=== PATIENT | male | born 1960 | race Caucasian/White ===

== ENCOUNTER 2018-10-12 12:41 | Emergency (ER) | payer OTHER ==
[~2018-10-12] VITALS: Ht 195.6 cm; Wt 122.5 kg
[~2018-10-12 12:41] MED LIST: NORCO 7.5-3251 EACH PO; ULTRAM50 MG PO
--- NOTE | 2018-10-13 07:15 | EKG ---
[facility] [address] [place], [place] [address] Signed Normal sinus rhythm Normal ECG No previous ECGs available Confirmed by VIC PADRON MD ([id number]) on 10/13/2018 7:15:13 AM Electronically Signed By: VIC PADRON MD 10/13/18 0715 PATIENT NAME: CANDY BROWN Electrocardiogram DATE OF : 60 PHYSICIAN: VIC PADRON MD REPORT #: [id number] REPORT IS CONFIDENTIAL AND NOT TO BE RELEASED WITHOUT AUTHORIZATION
== END 2018-10-12 14:32 | disposition home or self-care (01) ==
LOC: ED 12:41
DX: R07.89 Other chest pain (principal); Z79.899 Other long term (current) drug therapy
CPT/HCPCS: 71045; 80053; 84484; 85025; 85610; 93005; 93010; 99285-25

== ENCOUNTER 2019-07-17 22:03 | Emergency (ER) | payer OTHER ==
[~2019-07-17] VITALS: Ht 195.6 cm; Wt 106.6 kg
--- OUTSIDE RECORDS SUMMARY | ~2019-07-17 | XMS | Encounter Summary ---
Demographics + + + | Address | [address] | | | [place] [address] | + + + | Home Phone | | + + + | Preferred Language | Unknown | + + + | Marital Status | Single | + + + | Restorationist Affiliation | Unknown | + + + | Race | White | + + + | Ethnic Group | Not or | + + + Author + + + | Author | [facility] | + + + | Organization | [facility] | + + + | Address | Unknown | + + + | Phone | Unavailable | + + + Support + + +---------+ + | Name | Relationship | Address | Phone | + + +---------+ + | Nerissa East | ECON | Unknown | | + + +---------+ + Care Team Providers + +------+ + | Care Note Specialist Name | Role | Phone | + +------+ + | Hugo Falk MD | PCP | | + +------+ + Encounter Details +--------+ + + + + | Date | Type | Department | Care Team | Description | +--------+ + + + + | 04/16/ | Ancillary | [facility] Faculty | | | | 2005 | Registratio | Practice [address] | | | | | n | [facility] | | | | | | [place] [address] | | | | | | [phone] | | | +--------+ + + + + Social History + +-------+ +--------+------+ | Tobacco Use | Types | Packs/Day | Years | Date | | | | | Used | | + +-------+ +--------+------+ | Never Assessed | | | | | + +-------+ +--------+------+ + + + | Sex Assigned at | Date Recorded | | | | + + + | Not on file | | + + + + + + + | Job Start Date | Occupation | Industry | + + + + | Not on file | Not on file | Not on file | + + + + + + + + | Travel History | Travel Start | Travel End | + + + + + + | No recent travel history available. | + + documented as of this encounter Plan of Treatment Not on filedocumented as of this encounter Visit Diagnoses Not on filedocumented in this encounter"
--- OUTSIDE RECORDS SUMMARY | ~2019-07-17 | XMS | Encounter Summary ---
Demographics + + + | Address | [address] | | | [place] [address] | + + + | Home Phone | | + + + | Preferred Language | Unknown | + + + | Marital Status | Single | + + + | Faith Affiliation | Unknown | + + + [...] Team Providers + +------+ + | Care Manager Safe Name | Role | Phone | + +------+ + PCP | Unavailable | + +------+ + Encounter Details +--------+ + + + + | Date | Type | Department | Care Team | Description | +--------+ + + + + | 04/09/ | Results | | Other, Faculty | | | 2006 | Only | | [phone] | | +--------+ + + + + [...] | | | | | MNT) | [id number] OF | | | | | | SPECIMEN:B FIRST TISSUE | | | | | | [place] [address] | | | | | | CLINICAL [...] + + | [facility] | [address], [address] | [place] [address] | | | DERMATOPATHOLOGY | Tay Tyler | | | + + + + + documented in this encounter Visit Diagnoses Not on filedocumented in this encounter"
--- OUTSIDE RECORDS SUMMARY | ~2019-07-17 | XMS | Clinical Summary ---
Demographics + + + | Address | [address] | | | [place] [address] | + + + | Home Phone | | + + + | Preferred Language | Unknown | + + + | Marital Status | Single | + + + | Zoroastrian Affiliation | Unknown | + + + [...] Team Providers + +------+ + | Care Field Specialist Name | Role | Phone | + +------+ + | Hugo Falk MD | PCP | | + +------+ + Source Comments RAMIRO is fully live on both [facility] and [facility] Allergies Not on File Medications Not on [...] | PROVID | xxxxxxxxxxx | 09/02/19 | [phone] | [address] | PPO | | | ENCE | | [address] | [address] | [address] | | | | HEALTH | | sent | | [place], | | | | | | | | [place] [address] | | + +--------+ +--------+ + +------+ [...] | 1960 | [phone] | [place] [address] | | | [place] | | | 7 (Home) | | + +--------+ +--------+ + +"
--- OUTSIDE RECORDS SUMMARY | ~2019-07-17 | XMS | Encounter Summary ---
Demographics + + + | Address | [address] | | | [place] [address] | + + + | Home Phone | | + + + | Preferred Language | Unknown | + + + | Marital Status | Single | + + + | Adventism Affiliation | Unknown | + + + [...] Providers + +------+ + | Care Manager Of Community Relations Name | Role | Phone | + +------+ + PCP | Unavailable | + +------+ + Encounter Details +--------+ + + + + | Date | Type | Department | Care Team | Description | +--------+ + + + + | 04/09/ | Results | | Other, Faculty | | | 2006 | Only | | [phone] | | +--------+ + + + + [...] | | | | | MNT) | 34347COESLE OF | | | | | | SPECIMEN:B FIRST TISSUE | | | | | | [place] [address] | | | | | | CLINICAL [...] [facility] | [address], [address] | [place] [address] | | | DERMATOPATHOLOGY | Tay Tyler | | | + + + + + documented in this encounter Visit Diagnoses Not on filedocumented in this encounter"
--- OUTSIDE RECORDS SUMMARY | ~2019-07-17 | XMS | Encounter Summary ---
Demographics + + + | Address | [address] | | | [place] [address] | + + + | Home Phone [...] Author + + + | Author | [facility] | + + + | Organization | [facility] | + + + | Address | Unknown | + + + | Phone | Unavailable | + + + Support + + +---------+ + | Name | Relationship | Address | Phone | + + +---------+ + | Nerissa East | ECON | Unknown | | + + +---------+ + Care Team Providers + +------+ + | Care Magnetic Observer Name | Role | Phone | + +------+ + | Hugo Falk MD | PCP | | + +------+ + Encounter Details +--------+ + + + + | Date | Type | Department | Care Team | Description | +--------+ + + + + | 04/16/ | Ancillary | [facility] Faculty | | | | 2005 | Registratio | Practice [address] | | | | | n | [facility] | | | | | | [place] [address] | | | | | | [phone] | | | +--------+ + + + [...]
--- OUTSIDE RECORDS SUMMARY | ~2019-07-17 | XMS | Encounter Summary ---
Demographics + + + | Address | [address] | | | [place] [address] | + + + | Home Phone | | + + + | Preferred Language | Unknown | + + + | Marital Status | Single | + + + | Sabianist Affiliation | Unknown | + + + | Race | White | + + + | Ethnic Group | Not or | + + + Author + + + | Author | [facility] | + + + | Organization | [facility] | + + + | Address | Unknown | + + + | Phone | Unavailable | + + + Support + + +---------+ + | Name | Relationship | Address | Phone | + + +---------+ + | Nerissa East | ECON | Unknown | | + + +---------+ + Care Team Providers + +------+ + | Care Lead Java Programmer Name | Role | Phone | + +------+ + | Hugo Falk MD | PCP | | + +------+ + Encounter Details +--------+ + + + + | Date | Type | Department | Care Team | Description | +--------+ + + + + | 07/15/ | Diagnostic | Dermatology | | | | 2014 | Visit | Medical at [facility] | | | | | | Floor [address] [facility] | | | | | | [place] Mailcode: [address] | | | | | | [facility] | | | | | | and Healing, | | | | | | Building | | | | | | Floor [place], [place] | | | | | | [address] | | | | | | [phone] | | | +--------+ + + + [...] - 07/15/2015 9:46 AM PST Located at [facility] Dermatology [facility] [facility] 16th floor [address] [address] Dermspectra Patient Instructions: Plan to be here [...] the unit and close the door. A Home Economics Extension Worker will be outside the tesfaye th in [...] provider. If you are a patient at [facility], your photos will also be included in [...] diagnostic. There will no t be a front office secretary reviewing your photos at the time of your Spectra session if you re interested in having a provider review the photos and do a skin check, we should also sched ule you an appointment with your front office secretary. This is a resource only-- no provider will b e performing skin checks, reviewing spots of concern, looking at the photos etc. If you have any questions, please give us a call at [phone]. Any of our operators can help clarify the process for you. I m also including a link where you can learn more about the DermSpectra machine. [email or web address] documented in this encounter Progress Notes Crystal [...]
--- OUTSIDE RECORDS SUMMARY | ~2019-07-17 | XMS | Encounter Summary ---
Demographics + + + | Address | [address] | | | [place] [address] | + + + | Home Phone [...] Author + + + | Author | [facility] | + + + | Organization | [facility] | + + + | Address | Unknown | + + + | Phone | Unavailable | + + + Support + + +---------+ + | Name | Relationship | Address | Phone | + + +---------+ + | eNrissa East | ECON | Unknown | | + + +---------+ + Care Team Providers + +------+ + | Care Trimming Operator Name | Role | Phone | [...] [place] | | | | | | [address] | | | | | | | [...] + documented in this encounter Results DERMATOPATHOLOGY(WET [facility]) (05/29/2010) + + + + + + | Component | Value | Ref Range | Performed | Pathologist | | | | | At | Signature | + + + + + + | DERMATOPATH | SOURCE OF SPECIMEN:A | | [facility] | | | OLOGY(WET | FIRST TISSUE LEVEL IV | | DERMATOPATH | | | MNT) | [id number] OF | | OLOGY | | | | SPECIMEN:B FIRST TISSUE | | | | | | [place] [address] | | | | | | CLINICAL [...] + + | [facility] | [address], [address] | [place] [address] | | | DERMATOPATHOLOGY | [address] | | | + + + + + documented in this encounter Visit Diagnoses Not on filedocumented in this encounter"
--- OUTSIDE RECORDS SUMMARY | ~2019-07-17 | XMS | Encounter Summary ---
Demographics + + + | Address | [address] | | | [place] [address] | + + + | Home Phone | | + + + | Preferred Language | Unknown | + + + | Marital Status | Single | + + + | Presybeterian Affiliation | Unknown | + + + | Race | White | + + + | Ethnic Group | Not or | + + + Author + + + | Author | [facility] | + + + | Organization | [facility] | + + + | Address | Unknown | + + + | Phone | Unavailable | + + + Support + + +---------+ + | Name | Relationship | Address | Phone | + + +---------+ + | Nerissa East | ECON | Unknown | | + + +---------+ + Care Team Providers + +------+ + | Care Clod Puller Name | Role | Phone | + [...] [place] | | | | | | [address] | | | | | | | [...] + documented in this encounter Results DERMATOPATHOLOGY(WET [facility]) (05/29/2010) + + + + + + | Component | Value | Ref Range | Performed | Pathologist | | | | | At | Signature | + + + + + + | DERMATOPATH | SOURCE OF SPECIMEN:A | | [facility] | | | OLOGY(WET | FIRST TISSUE LEVEL IV | | DERMATOPATH | | | MNT) | [id number] OF | | OLOGY | | | | SPECIMEN:B FIRST TISSUE | | | | | | [place] [address] | | | | | | CLINICAL [...] + + | [facility] | [address], [address] | [place] [address] | | | DERMATOPATHOLOGY | [address] | | | + + + + + documented in this encounter Visit Diagnoses Not on filedocumented in this encounter"
--- OUTSIDE RECORDS SUMMARY | ~2019-07-17 | XMS | Encounter Summary ---
Demographics + + + | Address | [address] | | | [place] [address] | + + + | Home Phone | | + + + | Preferred Language | Unknown | + + + | Marital Status | Single | + + + | Christian Affiliation | Unknown | + + + | Race | White | + + + | Ethnic Group | Not or | + + + Author + + + | Author | [facility] | + + + | Organization | [facility] | + + + | Address | Unknown | + + + | Phone | Unavailable | + + + Support + + +---------+ + | Name | Relationship | Address | Phone | + + +---------+ + | Nerissa East | ECON | Unknown | | + + +---------+ + Care Team Providers + +------+ + | Care Car Head Liner Installer Name | Role | Phone | + +------+ + | Hugo Falk MD | PCP | | + +------+ + Encounter Details +--------+ + + + + | Date | Type | Department | Care Team | Description | +--------+ + + + + | 07/15/ | Diagnostic | Dermatology | | | | 2014 | Visit | Medical at [facility] | | | | | | Floor [address] | | | | | | [place] Mail[address]: [address] | | | | | | [facility] | | | | | | and Healing, | | | | | | Building | | | | | | Floor [place], [place] | | | | | | [address] | | | | | | [phone] | | | +--------+ + + + [...] - 07/15/2015 9:46 AM PST Located at [facility] Dermatology [place] [facility] [place] 16th floor [address] [address] Dermspectra Patient Instructions: Plan to be here [...] the unit and close the door. A Inspector Motor Vehicles will be outside the tesfaye th in [...] provider. If you are a patient at [facility], your photos will also be included [...] diagnostic. There will no t be a university manager reviewing your photos at the time of your Spectra session if you re interested in having a provider review the photos and do a skin check, we should also sched ule you an appointment with your university manager. This is a resource only-- no provider will b e performing skin checks, reviewing spots of concern, looking at the photos etc. If you have any questions, please give us a call at [phone]. Any of our operators can help clarify the process for you. I m also including a link where you can learn more about the DermSpectra machine. [email or web address] documented in this encounter Progress Notes Crystal [...]
--- OUTSIDE RECORDS SUMMARY | ~2019-07-17 | XMS | Clinical Summary ---
Demographics + + + | Address | [address] | | | [place] [address] | + + + | Home Phone | | + + + | Preferred Language | Unknown | + + + | Marital Status | Single | + + + | Uatsdin Affiliation | Unknown | + + + [...] Team Providers + +------+ + | Care Internet Marketing Director Name | Role | Phone | + +------+ + | Hugo Falk MD | PCP | | + +------+ + Source Comments RAMIRO is fully live on both [facility] Allergies Not on File Medications Not on [...] | PROVID | xxxxxxxxxxx | 09/02/19 | [phone] | [address] | PPO | | | ENCE | | 10-[address] | [address] | [address] | | | | HEALTH | | sent | | [place], | | | | | | | | [place] [address] | | + +--------+ +--------+ + +------+ [...] | 1960 | [phone] | [place] [address] | | | [place] | | | [address] (Home) | | + +--------+ +--------+ + +"
[~2019-07-17 22:03] MED LIST changes: +ZETIA10 MG PO
--- OUTSIDE RECORDS SUMMARY | 2019-07-17 22:06 | XMS ---
PreManage Notification: CANDY BROWN Security Taxicab Coordinator Events No recent Security Events currently on file CRITERIA MET - CARLENE CARE PROVIDERS Hugo Falk MD Primary Care Current PHONE: Unknown orjulia Case or Business Programmer Current PHONE: Unknown Aris FALK Current PHONE: Unknown AL [id number] Primary Care [facility] PHONE: Unknown Yony has no Care Guidelines for this patient. Ivelisse VISIT COUNT (12 MO.) 2 [facility] TOTAL 2 NOTE: Visits indicate total known visits. ED/UCC VISIT TRACKING (12 MO.) 07/17/2019 22:04 [facility] [place] TYPE: Emergency COMPLAINT: - CHEST PAIN 10/12/2018 12:[address] [facility] [place] TYPE: Emergency COMPLAINT: - CHEST PAIN DIAGNOSES: - Chest pain, unspecified - Other chest pain - Other half-way (current) drug therapy INPATIENT VISIT TRACKING (12 MO.) No inpatient visits to display in this time frame [email or web address]
--- NOTE | 2019-07-18 19:59 | EKG ---
[facility] [address] [place], [place] [address] Signed Sinus bradycardia with sinus arrhythmia Otherwise normal ECG When compared with ECG of 12-OCT-2018 12:46, QRS axis shifted right Confirmed by HUNG JAIMES MD ([id number]) on 07/18/2019 7:59:27 PM Electronically Signed By: HUNG JAIMES MD 07/18/191958 PATIENT NAME: CANDY BROWN ALLEN Electrocardiogram DATE OF : 60 PHYSICIAN: HUNG JAIMES MD REPORT #: [id number] REPORT IS CONFIDENTIAL AND NOT TO BE RELEASED WITHOUT AUTHORIZATION
== END 2019-07-18 01:02 | disposition home or self-care (01) ==
LOC: ED 22:03
DX: R07.9 Chest pain, unspecified (principal); E78.00 Pure hypercholesterolemia, unspecified; Z79.899 Other long term (current) drug therapy
CPT/HCPCS: 71045; 71275; 80053; 83690; 83735; 84484; 85025; 93005; 93010; 96361; 99285-25; J1170; J2405; J7030; Q9967

== ENCOUNTER 2019-09-10 02:12 | Emergency (ER) | payer OTHER ==
[~2019-09-10] VITALS: Ht 195.6 cm; Wt 113.4 kg
--- OUTSIDE RECORDS SUMMARY | ~2019-09-10 | XMS | Encounter Summary ---
Demographics + + + | Address | [address] | | | [place] [address] | + + + | Home Phone | | + + + | Preferred Language | Unknown | + + + | Marital Status | Single | + + + | Sabianism Affiliation | Unknown | + + + | Race | White | + + + | Ethnic Group | Not or | + + + Author + + + | Author | [facility] | + + + | Organization | [facility] | + + + | Address | Unknown | + + + | Phone | Unavailable | + + + Support + + +---------+ + | Name | Relationship | Address | Phone | + + +---------+ + | Nerissa East | ECON | Unknown | | + + +---------+ + Care Team Providers + +------+ + | Care Stores Naval Name | Role | Phone | + +------+ + | Hugo Falk MD | PCP | | + +------+ + Encounter Details +--------+ + + + + | Date | Type | Department | Care Team | Description | +--------+ + + + + | 07/15/ | Diagnostic | Dermatology | | | | 2014 | Visit | Medical at [facility] | | | | | | Floor [address] [facility] | | | | | | [place] Mail[address]: [address] | | | | | | [facility] | | | | | | and Healing, | | | | | | Building | | | | | | Floor [place], [place] | | | | | | [address] | | | | | | [phone] | | | +--------+ + + + [...] + + documented as of this encounter Patient Instructions Patient Instructions Crystal Guzmán - 07/15/2015 9:46 AM PST Located at [facility] Dermatology [place] [facility] 16th floor [address] [address] Dermspectra Patient Instructions: Plan to be here for one hour. The photography portion will take about 20 minutes. We have a private room for you to disrobe and enter the dias. We recommend that you re move all clothing, but you can choose to wear undergarments if you prefer. However, they amena l have to be free of any patterns. To see as much of your skin as possible, we ask that you wear your hair up, remove jewelry, and come in without any makeup. You ll enter the unit and close the door. A Armored Car Guard And Driver will be outside the tesfaye th in case you need assistance. An instructional video will play and take you through nine poses. Part of the advantage of DermSpectra photography is that the positioning, lighting, and focus are standardized. A s a result, it can be replicated on subsequent visits to look for changes on the skin. It us es 9 very high resolution cameras. You will get a USB drive of your photos to take with you for your own record or to pola e with your provider. If you are a patient at [facility], your photos will also be included in you r medical record. This is a non-billable service, meaning your insurance will not be billed and you will be responsible for the entire balance. While checking out from your appointment you will nee d to pay $150. These photos are a tool for future skin checks they are not diagnostic. There will no t be a meat carver reviewing your photos at the time of your Spectra session if you re interested in having a provider review the photos and do a skin check, we should also sched ule you an appointment with your meat carver. This is a resource only-- no provider will b e performing skin checks, reviewing spots of concern, looking at the photos etc. If you have any questions, please give us a call at [phone]. Any of our operators can help clarify the process for you. I m also including a link where you can learn more about the DermSpectra machine. [email or web address] documented in this encounter Progress Notes Crystal Guzmán - 07/15/2015 9:46 AM PSTPt here for Derm Spectra appointment. Consent for m was signed, no questions or concerns from the pt at this time. Photos taken without issue and put on thumb drive for pt. documented in this encou nter Plan of Treatment Not on filedocumented as of this encounter Visit Diagnoses Not on filedocumented in this encounter"
--- OUTSIDE RECORDS SUMMARY | ~2019-09-10 | XMS | Encounter Summary ---
Demographics + + + | Address | [address] | | | [place] [address] | + + + | Home Phone | | + + + | Preferred Language | Unknown | + + + | Marital Status | Single | + + + | Pentecostalism Affiliation | Unknown | + + + | Race | White | + + + | Ethnic Group | Not or | + + + Author + + + | Author | [facility] | + + + | Organization | [facility] | + + + | Address | Unknown | + + + | Phone | Unavailable | + + + Support + + +---------+ + | Name | Relationship | Address | Phone | + + +---------+ + | Nerissa East | ECON | Unknown | | + + +---------+ + Care Team Providers + +------+ + | Care Test Kitchen Home Economist Name | Role | Phone | + +------+ + PCP | Unavailable | + +------+ + Encounter Details +--------+ + + + + | Date | Type | Department | Care Team | Description | +--------+ + + + + | 05/29/ | Results | [facility] | Kel Roberts, | | | 2009 | Only | Department | MD RONAK SIMONS | | | | | | CLINIC DERMATOLOGY | | | | | | [address] | | | | | | [place] | | | | | | [address] | | | | | | | | +--------+ + + + [...] Not on filedocumented as of this encounter Procedures + +--------+ + + + | Procedure Name | Priori | Date/Time | Associated Diagnosis | Comments | | | ty | | | | + +--------+ + + + | DERMATOPATHOLOGY(WET | Routin | 05/29/2010 | | Results for this | | [facility]) | e | | | procedure are in the | | | | | | results section. | + +--------+ + + + documented in this encounter Results DERMATOPATHOLOGY(WET [facility]) (05/29/2010) + + + + + + | Component | Value | Ref Range | Performed | Pathologist | | | | | At | Signature | + + + + + + | DERMATOPATH | SOURCE OF SPECIMEN:A | | [facility] | | | OLOGY(WET | FIRST TISSUE LEVEL IV | | DERMATOPATH | | | MNT) | [id number] OF | | OLOGY | | | | SPECIMEN:B FIRST TISSUE | | | | | | [place] [address] | | | | | | CLINICAL DESCRIPTION:A. | | | | | | Shave, rt. flank; | | | | | | irreg. shaped and | | | | | | pigmented papules of | | | | | | unknownduration; | | | | | | melanocytic nevus; R/O | | | | | | melanoma.B. Shave, lt. | | | | | | shoulder; irreg. shaped | | | | | | and pigmented papules | | | | | | of unknownduration; | | | | | | melanocytic nevus; R/O | | | | | | melanoma. GROSS | | | | | | DESCRIPTION:A. Rt. | | | | | | flank. The specimen | | | | | | is received in formalin, | | | | | | labeled A, rt.flank, | | | | | | with the patient's name | | | | | | and consists of a pale | | | | | | hewitt and brown | | | | | | shavebiopsy measuring | | | | | | 1.2 x 1.0 cm. The | | | | | | specimen is sectioned | | | | | | into foursegments and | | | | | | entirely submitted in | | | | | | one cassette.B. Lt. | | | | | | shoulder. The specimen | | | | | | is received in | | | | | | formalin, labeled B, | | | | | | lt.shoulder, with the | | | | | | patient's name and | | | | | | consists of a pale hewitt | | | | | | and brownshave biopsy | | | | | | measuring 0.9 x 0.8 cm. | | | | | | The specimen is | | | | | | trisected andentirely | | | | | | submitted in one | | | | | | cassette. | | | | | | MICROSCOPIC | | | | | | DESCRIPTION:In the right | | | | | | flank biopsy there is a | | | | | | small to moderately | | | | | | broad, symmetricaland | | | | | | well circumscribed | | | | | | melanocytic neoplasm | | | | | | characterized by small | | | | | | nestsand single | | | | | | melanocytes along the | | | | | | basal layer of | | | | | | hyperplastic | | | | | | andhyperpigmented rete | | | | | | ridges. The melanin | | | | | | pigment extends | | | | | | throughout theepidermis, | | | | | | including the stratum | | | | | | corneum. There are | | | | | | round to oval nests | | | | | | ofsimilar appearing | | | | | | melanocytes in the | | | | | | thickened, fibrotic, and | | | | | | inflamedpapillary | | | | | | dermis. In the | | | | | | left shoulder biopsy | | | | | | there is a small to | | | | | | moderately | | | | | | broad,symmetrical and | | | | | | well circumscribed | | | | | | melanocytic neoplasm | | | | | | characterized bysmall | | | | | | nests and single | | | | | | melanocytes along the | | | | | | basal layer of | | | | | | hyperplasticand | | | | | | hyperpigmented rete | | | | | | ridges. The melanin | | | | | | pigment extends | | | | | | throughout theepidermis, | | | | | | including the stratum | | | | | | corneum. There are | | | | | | round to oval nests | | | | | | ofsimilar appearing | | | | | | melanocytes in the | | | | | | thickened, fibrotic, and | | | | | | inflamedpapillary | | | | | | dermis. | | | | | | DIAGNOSIS:A: MELANOCYTIC | | | | | | NEVUS, COMPOUND TYPE. | | | | | | NOTE: The right | | | | | | flank nevus appears to | | | | | | be completely excised in | | | | | | thesesections. B: | | | | | | MELANOCYTIC NEVUS, | | | | | | COMPOUND TYPE. | | | | | | NOTE: The left shoulder | | | | | | nevus extends to the | | | | | | surgical margins. | | | | | | CRW:emr05/31/10 My | | | | | | electronic signature | | | | | | indicates that I have | | | | | | personally reviewed | | | | | | alldiagnostic slides, | | | | | | the gross and/or | | | | | | microscopic portion of | | | | | | thisreport and | | | | | | formulated the final | | | | | | diagnosis. | | | | | | Rendering Diagnostician: | | | | | | Elmer Hall Jr., | | | | | | | | | | | | Talyai | | | | | | dave Signed 05/31/2010 | | | | + + + + + + + + | Specimen | + + | | + + + + + + + | Performing | Address | City/State/Zipcode | Phone Number | | Organization | | | | + + + + + | [facility] | [address], [address] | [place] [address] | | | DERMATOPATHOLOGY | [address] | | | + + + + + documented in this encounter Visit Diagnoses Not on filedocumented in this encounter"
--- OUTSIDE RECORDS SUMMARY | ~2019-09-10 | XMS | Encounter Summary ---
Demographics + + + | Address | [address] | | | [place] [address] | + + + | Home Phone | | + + + | Preferred Language | Unknown | + + + | Marital Status | Single | + + + | Shinto Affiliation | Unknown | + + + | Race | White | + + + | Ethnic Group | Not or | + + + Author + + + | Organization | Unknown | + + + | Address | Unknown | + + + | Phone | Unavailable | + + + Support + + +---------+ + | Name | Relationship | Address | Phone | + + +---------+ + | Nerissa East | ECON | Unknown | | + + +---------+ + Care Team Providers + +------+ + | Care Crozer Operator Name | Role | Phone | + +------+ + PCP | Unavailable | + +------+ + Encounter Details +--------+ + + + + | Date | Type | Department | Care Team | Description | +--------+ + + + + | 04/09/ | Results | | Other, Faculty | | | 2006 | Only | | [phone] | | +--------+ + + + + [...] + + | DERMATOPATHOLOGY(WET | Routin | 04/09/2006 | | Results for this | | [facility]) | e | | | procedure are in the | | | | | | results section. | + +--------+ + + + documented in this encounter Results DERMATOPATHOLOGY(WET [facility]) (04/09/2006) + + + + + + | Component | Value | Ref Range | Performed | Pathologist | | | | | At | Signature | + + + + + + | DERMATOPATH | SOURCE OF SPECIMEN:A | | | | | OLOGY(WET | FIRST TISSUE LEVEL IV | | | | | MNT) | [id number] OF | | | | | | SPECIMEN:B FIRST TISSUE | | | | | | [place]EL [place] [address] | | | | | | CLINICAL DESCRIPTION:A. | | | | | | Excision, abdomen; | | | | | | irreg. shaped and | | | | | | pigmented plaques; | | | | | | compoundmelanocytic | | | | | | nevus; R/O melanoma.B. | | | | | | Excision, lt. flank; | | | | | | irreg. shaped and | | | | | | pigmented plaques; | | | | | | compoundmelanocytic | | | | | | nevus; R/O melanoma. | | | | | | GROSS DESCRIPTION:A. | | | | | | Abdomen, ellipse, 2.1 | | | | | | x 1.0 x 0.7 cm, inked, | | | | | | seven segments, A-1 | | | | | | Phuong-2.B. Lt. flank, | | | | | | ellipse, 1.4 x 0.6 x 0.8 | | | | | | cm, inked, five | | | | | | segments. MICROSCOPIC | | | | | | DESCRIPTION:A. There | | | | | | is a small to moderately | | | | | | broad, symmetrical and | | | | | | wellcircumscribed | | | | | | melanocytic neoplasm | | | | | | characterized by small | | | | | | nests and | | | | | | singlemelanocytes along | | | | | | the basal layer of | | | | | | hyperplastic and | | | | | | hyperpigmented | | | | | | reteridges. The | | | | | | melanin pigment extends | | | | | | throughout the | | | | | | epidermis, includingthe | | | | | | stratum corneum. There | | | | | | are round to oval nests | | | | | | of similar | | | | | | appearingmelanocytes in | | | | | | the thickened, fibrotic, | | | | | | and inflamed papillary | | | | | | dermis. B. There is a | | | | | | small to moderately | | | | | | broad, symmetrical, and | | | | | | wellcircumscribed | | | | | | melanocytic neoplasm | | | | | | characterized by small, | | | | | | round to ovalnests and | | | | | | single melanocytes along | | | | | | the basal layer of | | | | | | thin, hyperplastic,and | | | | | | hyperpigmented rete | | | | | | ridges. The | | | | | | melanocytic nuclei are | | | | | | small anduniform, and | | | | | | most of the cells have | | | | | | cytoplasm containing | | | | | | melanin, alsoextending | | | | | | throughout the epidermis | | | | | | including the stratum | | | | | | corneum and | | | | | | inmelanophages in the | | | | | | fibrotic papillary | | | | | | dermis. DIAGNOSIS:A: | | | | | | MELANOCYTIC NEVUS, | | | | | | COMPOUND TYPE.NOTE: | | | | | | The abdomen nevus | | | | | | appears to be completely | | | | | | excised in | | | | | | thesesections. B: | | | | | | MELANOCYTIC NEVUS, | | | | | | JUNCTIONAL TYPE. NOTE: | | | | | | The left flank nevus | | | | | | appears to be completely | | | | | | excised in | | | | | | thesesections. | | | | | | MELISA/jyi04/12/06Rendering | | | | | | Diagnostician: Elmer | | | | | | Ruben Hall Jr., | | | | | | Cindy | | | | | | dave Signed 04/12/2006 | | | | + + + + + + + + | Specimen | + + | | + + + + + | Narrative | Performed At | + + + | Ordered by Armando Begum | | + + + + + + + + | Performing | Address | City/State/Zipcode | Phone Number | | Organization | | | | + + + + + | [facility] | [address], [address] | [place] [address] | | | DERMATOPATHOLOGY | [address] | | | + + + + + documented in this encounter Visit Diagnoses Not on filedocumented in this encounter"
--- OUTSIDE RECORDS SUMMARY | ~2019-09-10 | XMS | Encounter Summary ---
Demographics + + + | Address | [address] | | | [place] [address] | + + + | Home Phone | | + + + | Preferred Language | Unknown | + + + | Marital Status | Single | + + + | Voodoo Affiliation | Unknown | + + + | Race | White | + + + | Ethnic Group | Not or | + + + Author + + + | Author | [facility] | + + + | Organization | [facility] | + + + | Address | Unknown | + + + | Phone | Unavailable | + + + Support + + +---------+ + | Name | Relationship | Address | Phone | + + +---------+ + | Nerissa East | ECON | Unknown | | + + +---------+ + Care Team Providers + +------+ + | Care Mechanical Engineering Professor Name | Role | Phone | + +------+ + | Hugo Falk MD | PCP | | + +------+ + Encounter Details +--------+ + + + + | Date | Type | Department | Care Team | Description | +--------+ + + + + | 04/16/ | Ancillary | [facility] Faculty | | | | 2005 | Registratio | Practice [address] | | | | | n | [facility] | | | | | | [place] [address] | | | | | | [phone] | | | +--------+ + + + [...]
--- OUTSIDE RECORDS SUMMARY | ~2019-09-10 | XMS | Clinical Summary ---
Demographics + + + | Address | [address] | | | [place] [address] | + + + | Home Phone | | + + + | Preferred Language | Unknown | + + + | Marital Status | Single | + + + | Temple Affiliation | Unknown | + + + | Race | White | + + + | Ethnic Group | Not or | + + + Author + + + | Author | [facility] | + + + | Organization | [facility] | + + + | Address | Unknown | + + + | Phone | Unavailable | + + + Support + + +---------+ + | Name | Relationship | Address | Phone | + + +---------+ + | Nerissa East | ECON | Unknown | | + + +---------+ + Care Team Providers + +------+ + | Care Ophthalmic Technician Name | Role | Phone | + +------+ + | Hugo Falk MD | PCP | | + +------+ + Source Comments [facility]IRO is fully live on both [facility] Allergies Not on File Medications Not on file Active Problems Not on file Social History + +-------+ +--------+------+ | Tobacco [...] recent travel history available. | + + Last Filed Vital Signs Not on file Plan of Treatment + + + + + | Health Maintenance | Due Date | Last Done | Comments | + + + + + | Influenza (Flu) | | | | | vaccination (#1) | 9 | | | + + + + + | Pneumococcal | Aged Out | | No longer eligible | | vaccination | | | based on patient's | | | | | age to complete this | | | | | topic | + + + + + Results Not on filefrom Last 3 Months Insurance + +--------+ +--------+ + +------+ | Payer | Benefi | Subscriber | Effect | Phone | Address | Type | | | t Plan | ID | william | | | | | | / | | Dates | | | | | | Group | | | | | | + +--------+ +--------+ + +------+ | [facility] | PROVID | xxxxxxxxxxx | 09/02/19 | [phone] | [address] | PPO | | | ENCE | | 10-Pre | 0 | [address] | | | [address]ALTH | | sent | | [place], | | | | | | | | [place] [address] | | + +--------+ +--------+ + +------+ + +--------+ +--------+ + + | Guarantor Name | Accoun | Relation to | Date | Phone | Billing Address | | | t Type | Patient | of | | | | | | | | | | + +--------+ +--------+ + + | Roni Travis | Person | Self | [birth year] | [address] | | | al/Fam | | 1960 | [phone] | [place] [address] | | | [place] | | | [address] (Home) | | + +--------+ +--------+ + +"
--- OUTSIDE RECORDS SUMMARY | ~2019-09-10 | XMS | Encounter Summary ---
Demographics + + + | Address | [address] | | | [place] [address] | + + + | Home Phone | | + + + | Preferred Language | Unknown | + + + | Marital Status | Single | + + + | Scientology Affiliation | Unknown | + + + | Race | White | + + + | Ethnic Group | Not or | + + + Author + + + | Author | [facility] | + + + | Organization | [facility] | + + + | Address | Unknown | + + + | Phone | Unavailable | + + + Support + + +---------+ + | Name | Relationship | Address | Phone | + + +---------+ + | Nerissa East | ECON | Unknown | | + + +---------+ + Care Team Providers + +------+ + | Care Heel Trimmer Name | Role | Phone | + +------+ + | Hugo Falk MD | PCP | | + +------+ + Encounter Details +--------+ + + + + | Date | Type | Department | Care Team | Description | +--------+ + + + + | 04/16/ | Ancillary | [facility] Faculty | | | | 2005 | Registratio | Practice [address] | | | | | n | [facility] | | | | | | [place] [address] | | | | | | [phone] | | | +--------+ + + + [...]
--- OUTSIDE RECORDS SUMMARY | ~2019-09-10 | XMS | Encounter Summary ---
Demographics + + + | Address | [address] | | | [place] [address] | + + + | Home Phone | | + + + | Preferred Language | Unknown | + + + | Marital Status | Single | + + + | Taoism Affiliation | Unknown | + + + | Race | White | + + + | Ethnic Group | Not or | + + + Author + + + | Author | [facility] | + + + | Organization | [facility] | + + + | Address | Unknown | + + + | Phone | Unavailable | + + + Support + + +---------+ + | Name | Relationship | Address | Phone | + + +---------+ + | Nerissa East | ECON | Unknown | | + + +---------+ + Care Team Providers + +------+ + | Care Lab Rn Name | Role | Phone | + +------+ + | Hugo Falk MD | PCP | | + +------+ + Encounter Details +--------+ + + + + | Date | Type | Department | Care Team | Description | +--------+ + + + + | 07/15/ | Diagnostic | Dermatology | | | | 2014 | Visit | Medical at [facility] | | | | | | Floor [address] [facility] | | | | | | [place] Mailcode: [address] | | | | | | [facility] | | | | | | and Healing, | | | | | | Building | | | | | | Floor [place], [place] | | | | | | [address] | | | | | | [phone] | | | +--------+ + + + [...] - 07/15/2015 9:46 AM PST Located at [facility] Dermatology [facility] 16th floor [address] [address] Dermspectra Patient Instructions: Plan to be here [...] the unit and close the door. A Hydraulic Repairer will be outside the tesfaye th in [...] provider. If you are a patient at [facility], your photos will also be included [...] diagnostic. There will no t be a mixing plant dumper reviewing your photos at the time of your Spectra session if you re interested in having a provider review the photos and do a skin check, we should also sched ule you an appointment with your mixing plant dumper. This is a resource only-- no provider will b e performing skin checks, reviewing spots of concern, looking at the photos etc. If you have any questions, please give us a call at [phone]. Any of our operators can help clarify the process for you. I m also including a link where you can learn more about the DermSpectra machine. [email or web address] documented in this encounter Progress Notes Crystal [...]
--- OUTSIDE RECORDS SUMMARY | ~2019-09-10 | XMS | Encounter Summary ---
Demographics + + + | Address | [address] | | | [place] [address] | + + + | Home Phone | | + + + | Preferred Language | Unknown | + + + | Marital Status | Single | + + + | Baptist Affiliation | Unknown | + + + [...] Team Providers + +------+ + | Care Manufacturing Industrial Engineer Name | Role | Phone | + +------+ + PCP | Unavailable | + +------+ + Encounter Details +--------+ + + + + | Date | Type | Department | Care Team | Description | +--------+ + + + + | 04/09/ | Results | | Other, Faculty | | | 2006 | Only | | [phone] | | +--------+ + + + + [...] | | | | | MNT) | [id number] OF | | | | | | SPECIMEN:B FIRST TISSUE | | | | | | [place] [address] | | | | | | CLINICAL [...] + + | [facility] | [address], [address] | [place] [address] | | | DERMATOPATHOLOGY | [address] | | | + + + + + documented in this encounter Visit Diagnoses Not on filedocumented in this encounter"
--- OUTSIDE RECORDS SUMMARY | ~2019-09-10 | XMS | Encounter Summary ---
Demographics + + + | Address | [address] | | | [place] [address] | + + + | Home Phone | | + + + | Preferred Language | Unknown | + + + | Marital Status | Single | + + + | Rastafari Affiliation | Unknown | + + + | Race | White | + + + | Ethnic Group | Not or | + + + Author + + + | Author | [facility] | + + + | Organization | [facility] | + + + | Address | Unknown | + + + | Phone | Unavailable | + + + Support + + +---------+ + | Name | Relationship | Address | Phone | + + +---------+ + | Nerissa East | ECON | Unknown | | + + +---------+ + Care Team Providers + +------+ + | Care Sales Order Coordinator Name | Role | Phone | + [...] [place] | | | | | | [id number] | | | | | | | [...] + documented in this encounter Results DERMATOPATHOLOGY(WET [facility]) (05/29/2010) + + + + + + | Component | Value | Ref Range | Performed | Pathologist | | | | | At | Signature | + + + + + + | DERMATOPATH | SOURCE OF SPECIMEN:A | | [facility] | | | OLOGY(WET | FIRST TISSUE LEVEL IV | | DERMATOPATH | | | MNT) | [id number] OF | | OLOGY | | | | SPECIMEN:B FIRST TISSUE | | | | | | [place] [address] | | | | | | CLINICAL [...] + + | [facility] | [address], [address] | [place] [address] | | | DERMATOPATHOLOGY | [address] | | | + + + + + documented in this encounter Visit Diagnoses Not on filedocumented in this encounter"
--- OUTSIDE RECORDS SUMMARY | ~2019-09-10 | XMS | Clinical Summary ---
Demographics + + + | Address | [address] | | | [place] [address] | + + + | Home Phone | | + + + | Preferred Language | Unknown | + + + | Marital Status | Single | + + + | Protestant Affiliation | Unknown | + + + [...] Team Providers + +------+ + | Care Shipping Manager Name | Role | Phone | + +------+ + | Hugo Falk MD | PCP | | + +------+ + Source Comments RAMIRO is fully live on [facility] Allergies Not on File Medications Not [...] | PROVID | xxxxxxxxxxx | 09/02/19 | [phone] | [address] | PPO | | | ENCE | | 10-Pre | [address] | [address] | | | | HEALTH | | sent | | [place], | | | | | | | | [place] [address] | | + +--------+ +--------+ + +------+ [...] | 1960 | [phone] | [place] [address] | | | [place] | | | [address] (Home) | | + +--------+ +--------+ + +"
--- OUTSIDE RECORDS SUMMARY | 2019-09-10 04:12 | XMS ---
PreManage Notification: CANDY BROWN Security Solar Energy Technician Events No recent Security Events currently on file CRITERIA MET - CARLENE CARE PROVIDERS BAILEE MAHESH Finish Cleaner/Tax Processor 07/20/2019-Current PHONE: [phone] Hugo Falk MD Primary Care Current PHONE: Unknown sabine Case or Pipe Crew Foreman Current PHONE: Unknown Aris FALK Current PHONE: Unknown [facility] Primary Care [facility] PHONE: Unknown Yony has no Care Guidelines for this patient. Ivelisse VISIT COUNT (12 MO.) 3 KELLY Mckinley TOTAL 3 NOTE: Visits indicate total known visits. ED/UCC VISIT TRACKING (12 MO.) 09/10/2019 02:12 [facility] [place] TYPE: Emergency COMPLAINT: - THROAT PAIN 07/17/2019 22:04 [facility] [place] TYPE: Emergency COMPLAINT: - CHEST PAIN DIAGNOSES: - Pure hypercholesterolemia, unspecified - Precordial pain - Other chcf (current) drug therapy - Chest pain, unspecified 10/12/2018 12:42 [facility] [place] TYPE: Emergency COMPLAINT: - CHEST PAIN DIAGNOSES: - Chest pain, unspecified - Other chest pain - Other continuous churn buttermaker (current) drug therapy INPATIENT VISIT TRACKING (12 MO.) No inpatient visits to display in this time frame [email or web address]
[2019-09-10] MEDS ORDERED: VALIUM5 MG PO (06:53)
--- NOTE | 2019-09-10 07:12 | EKG ---
[facility] [address] [facility] [place], [place] [address] Signed Sinus bradycardia Nonspecific intraventricular conduction delay Borderline ECG When compared with ECG of 17-JUL-2019 22:08, No significant change was found Confirmed by VIC PADRON MD ([id number]) on 09/10/2019 7:12:19 AM Electronically Signed By: VIC PADRON MD 09/10/19711 PATIENT NAME: CANDY BROWN Electrocardiogram DATE OF : 60 PHYSICIAN: VIC PADRON MD REPORT #: [id number] REPORT IS CONFIDENTIAL AND NOT TO BE RELEASED WITHOUT AUTHORIZATION
== END 2019-09-10 07:12 | disposition home or self-care (01) ==
LOC: ED 02:12
DX: K22.4 Dyskinesia of esophagus (principal); R10.13 Epigastric pain; Z79.899 Other long term (current) drug therapy
CPT/HCPCS: 71045; 80053; 83690; 84484; 85025; 93005; 93010; 96374; 96375; 96376; 99284-25; J1885; J2270; J2405; J3360

== ENCOUNTER 2022-04-05 11:52 | Day surgery (SDC) | payer OTHER ==
[~2022-04-05] VITALS: Ht 195.6 cm; Wt 116.0 kg
[~2022-04-05 11:52] MED LIST changes: +VALIUM5 MG PO
--- NOTE | 2022-04-05 15:04 | NUR ---
PT ALERT, ORIENTED AND DEALING APPROPRIATELY WITH DELAY IN TREATMENT. DANTE RETURNED TO FROM HOME. PT SEEMS INFORMED, REQUESTED PRAYER. DANTE WILL REMAIN FOR DC. WILL CONTINUE TO FOLLOW
--- NOTE | 2022-04-05 15:20 | NUR ---
04/05/22 1520 Astrid Guevara 1502 PATIENT ARRIVES TO PACU AWAKE. RESP EVEN AND UNLABORED, NC AT 2 LITERS. DENIES PAIN OR NAUSEA. 1515 PATIENT REPOSITIONS SELF TO BACK. HOB ELEVATED. TAKING SIPS OF WATER. RESP EVEN AND UNLABORED, OXYGEN OFF, ROOM AIR SATS >93%. CONTINUES TO DENY PAIN OR NAUSEA.
--- NOTE | 2022-04-07 14:44 | OR ---
[facility] [address] [place], [place] [address] Signed DATE OF OPERATION: 04/05/2022 SURGEON: Jose Roberto Goldman MD PREOPERATIVE DIAGNOSIS: Colon screening. POSTOPERATIVE DIAGNOSES: 1. Extensive diverticulosis. 2. Small polyp x1, transverse colon. PROCEDURE: Total colonoscopy to cecum with cold morcellation polypectomy x1. ANESTHESIA: Intravenous sedation fentanyl 100 mcg and Versed 5 mg. INDICATION: 61-year-old white man is a patient of Mahesh Caballero MD in [place]. He has history of colonoscopy by me in 2011 at which time he was noted to have diverticulosis only. He has no symptoms of bleeding diarrhea or constipation and no family history of colon cancer. He is admitted to undergo colonoscopy. He understands the risks of bleeding, infection, and perforation. FINDINGS: The prep was excellent. Complete colonoscopy was undertaken of cecum without question. He had a small polyp of the right transverse colon which was excised with cold morcellation technique. The remaining colon had numerous diverticula. There were no other findings of concern. PROCEDURE IN DETAIL: The patient was brought to the endoscopy suite and placed in lateral decubitus position given intravenous sedation to the point of slurred speech and nystagmus. Digital rectal examination was normal. Full cardiopulmonary monitoring was maintained. An Olympus video colonoscope was passed in the rectum and manipulated throughout the colon noting numerous diverticula throughout the colon. The scope was ultimately passed to the cecum. Ileocecal valve and appendiceal orifice were normal. The scope was withdrawn from that point and examination throughout was undertaken showing no sign of abnormality into the right transverse colon where a small polyp was noted, this was excised with cold morcellation technique. Further withdrawal of scope showed no other abnormality Electronically Signed By: JOSE ROBERTO GOLDMAN MD 04/07/22 1444 PATIENT NAME: CANDY BROWN OPERATIVE REPORT DATE OF : 60 REPORT #: [id number] PHYSICIAN: JOSE ROBERTO GOLDMAN MD PCP: MAHESH CABALLERO MD REPORT IS CONFIDENTIAL AND NOT TO BE RELEASED WITHOUT AUTHORIZATION [facility] [address], [place] [address] Signed other than diverticulosis. Retroflexed view of the rectum was normal as well. The patient was taken to recovery room in good condition having suffered no complication. CONCLUDING DIAGNOSES: 1. Diverticulosis. 2. Small polyp, right transverse colon. PLAN: Recommend repeat colonoscopy in 5 years based on the polyp, sooner if symptoms should occur. We would recommend high-fiber diet as well. He will return to the ongoing care of Dr. Mahesh Caballero. MD POOL Mayer/LA NENAL /[id number] cc: Mahesh Caballero MD Copies: MAHESH CABALLERO MD ~ Electronically Signed By: JOSE ROBERTO GOLDMAN MD 04/07/22 1444 PATIENT NAME: CANDY BROWN OPERATIVE REPORT DATE OF : 60 REPORT #: [id number] PHYSICIAN: JOSE ROBERTO GOLDMAN MD PCP: MAHESH CABALLERO MD REPORT IS CONFIDENTIAL AND NOT TO BE RELEASED WITHOUT AUTHORIZATION
--- NOTE | 2022-04-09 21:50 | PATH ---
[facility] [address] [place], [place] [address] Signed SPECIMEN(S): A TRANSVERSE COLON POLYP SPECIMEN SOURCE: A. TRANSVERSE COLON POLYP CLINICAL HISTORY: History of diverticulosis. Postop: Diverticulosis, small polyp x 1. FINAL PATHOLOGIC DIAGNOSIS: Colon, transverse, polypectomy: - Multiple fragments of tubular adenoma. - There is no evidence of high-grade dysplasia or malignancy. TWK:yvette:C2NR MICROSCOPIC EXAMINATION: Histologic sections of all submitted blocks are examined by light microscopy. These findings, together with the gross examination, support the pathologic diagnosis. GROSS DESCRIPTION: The specimen, labeled "Roni Brown, #1," and designated on the requisition "transverse colon polyp," is received in formalin and consists of four hewitt soft tissue fragments that measure 0.2 to 0.3 cm in greatest dimension. The specimen is entirely submitted in cassette (A1). FB (under the direct supervision of a pathologist) The Gross Description was prepared using a voice recognition system. The report was reviewed for accuracy; however, sound-alike word errors, addition and/or deletions may occur. If there is any question about this report, please contact Client Services. PERFORMING LABORATORY: The technical component was performed by [facility], [address] [place] [id number] (CLIA# [id number]). The professional interpretation was performed by [facility], [facility], [address] [place] [address] (CLIA#: [id number]). Diagnostician: Parker Vieira MD Pathologist Electronically Signed 04/09/2022 PATIENT NAME: RONI BROWN PATHOLOGY DATE OF : 60 REPORT #: [id number] PHYSICIAN: [facility] PCP: MAHESH MOROCHO MD REPORT IS CONFIDENTIAL AND NOT TO BE RELEASED WITHOUT AUTHORIZATION [address] [place], [place] [address] Signed Copies: ~ PATIENT NAME: RONI BROWN PATHOLOGY DATE OF : 60 REPORT #: [id number] PHYSICIAN: [facility] PCP: MAHESH MOROCHO MD REPORT IS CONFIDENTIAL AND NOT TO BE RELEASED WITHOUT AUTHORIZATION
== END 2022-04-05 15:35 | disposition home or self-care (01) ==
LOC: OPS 11:52 → DS 11:57 → OPS 13:00 → DS 13:00 → OPS 15:35
PROVIDERS: ATTEND Surgery
PROC: 0DBL8ZX Excision of Transverse Colon, Via Natural or Artificial Opening Endoscopic, Diagnostic (ICD-10-PCS; principal; 2022-04-05 13:00)
DX: Z12.11 Encounter for screening for malignant neoplasm of colon (principal); D12.3 Benign neoplasm of transverse colon; E66.9 Obesity, unspecified; K57.30 Diverticulosis of large intestine without perforation or abscess without bleeding; Z90.49 Acquired absence of other specified parts of digestive tract; Z86.16 Personal history of COVID-19; Z68.30 Body mass index [BMI] 30.0-30.9, adult
CPT/HCPCS: G0500; J2250; J3010; J7121

== ENCOUNTER 2024-07-15 17:50 | Emergency (ER) | payer OTHER ==
[~2024-07-15] VITALS: Ht 195.6 cm; Wt 114.2 kg
[~2024-07-15 17:50] MED LIST changes: +METHOCARBAMOL750 MG PO
[2024-07-15 18:51] VITALS: BP 118/84
== END 2024-07-15 18:52 | disposition home or self-care (01) ==
LOC: ED 17:50
DX: H43.391 Other vitreous opacities, right eye (principal)
CPT/HCPCS: 99283